=== PATIENT | female | born 1965 | race Caucasian/White ===

== ENCOUNTER 2018-03-31 20:25 | Emergency (ER) | payer OTHER ==
[2018-03-31] MEDS ORDERED: PHENAZOPYRIDINE HCL 200 MG TAB PO ONE (21:17)
[2018-03-31] MEDS ORDERED: CEPHALEXIN 500MG PREPACK#4 BTL TAKEHOME ONE (21:17)
--- NOTE | 2018-03-31 21:19 | EDPHY ---
H & P Stated Complaint: Blood in urine x1 day. Lower abd pain/pressure, polyuria Time Seen by Provider: 03/31/18 21:06 HPI/ROS: CHIEF COMPLAINT: "I think I have a bladder infection" HISTORY OF PRESENT ILLNESS: 52-year-old immunocompetent female arrived this afternoon from [place], in town for [facility] graduation, complaining of suprapubic pressure, increased frequency, hematuria since approximately 4:00 p.m. when her plane landed. No back or flank pain. No nausea or vomiting. No fever or chills. No flu-like symptoms. PRIMARY CARE PROVIDER: REVIEW OF SYSTEMS: A ten point review of systems was performed and is negative with the exception of the items mentioned in the HPI PAST MEDICAL & SURGICAL HISTORY: hysterectomy. Hypothyroid. SOCIAL HISTORY: Nonsmoker. Visiting from [place] [ PHYSICAL EXAM (Prior to examination, patient consented to physical exam, hands were washed and my usual and customary physical exam procedures followed) 1) GENERAL: Well-developed, well-nourished, alert and oriented. Appears to be in no acute distress. 2) HEAD: Normocephalic, atraumatic 3) HEENT: Pupils equal, round, reactive to light bilaterally. Sclera anicteric. 4) NECK: Full range of motion, no meningeal signs. 5) LUNGS: Clear auscultation bilaterally, no wheezes, no rhonchi, no retractions. 6) HEART: Regular rate and rhythm, no murmur, no heave, no gallop. 7) ABDOMEN: No guarding, no rebound, no focal tenderness, negative McBurney's, negative Morataya's, negative Rovsing's, negative peritoneal sign, 8) MUSCULOSKELETAL: Moving all extremities, no focal areas of tenderness, no obvious trauma. No peripheral edema or discoloration. 9) BACK: No CVA tenderness 10) SKIN: No rash, no petechiae. 11) Psychiatric: Patient is oriented X 3, there is no agitation. DIFFERENTIAL DIAGNOSIS: In no particular order including but not limited to cystitis, pyelonephritis, diverticulitis - Personal History LMP (Females 10-55): Hysterectomy Current Tetanus/Diphtheria Vaccine: Unsure Current Tetanus Diphtheria and Acellular Pertussis (TDAP): Unsure - Medical/Surgical History Hx Asthma: No Hx Chronic Respiratory Disease: No Hx Diabetes: No Hx Cardiac Disease: No Hx Renal Disease: No Hx Cirrhosis: No Hx Alcoholism: No Hx HIV/AIDS: No Hx Splenectomy or Spleen Trauma: No Other PMH: Hysterectomy, pitutary tumor removal, hypothyroid, RTK, Lap-charan, Diabetes Inciptus. - Social History Smoking Status: Former smoker Constitutional: Initial Vital Signs Temperature (C) 36.7 C 03/31/18 20:34 Heart Rate 78 03/31/18 20:34 Respiratory Rate 16 03/31/18 20:34 Blood Pressure 137/87 H 03/31/18 20:34 O2 Sat (%) 97 03/31/18 20:34 O2 Delivery Mode Room Air Allergies/Adverse Reactions: codeine Allergy (Verified 03/31/18 20:40) erythromycin base Allergy (Verified 03/31/18 20:40) Home Medications: Medication Instructions Recorded Cephalexin [Keflex] 500 mg PO TID 7 Days cap 03/31/18 Ddavp 03/31/18 Levothyroxine 03/31/18 Phenazopyridine HCl [Pyridium] 200 mg PO PC #10 tab 03/31/18 Medical Decision Making ED Course/Re-evaluation: I feel the patient can be treated on an outpatient basis as I believe her to be a competent decision-maker, shows no signs of urosepsis, afebrile, no comorbid medical conditions. Nonetheless, I have provided acute urinary tract infection red flag signs and symptoms precautions, and reasons to return to the emergency department. She feels comfortable being discharged. Started on Keflex and Pyridium. Usual and customary discharge precautions instructions provided. Care of patient under supervision of secondary supervising physician Dr Rhoades. - Data Points Laboratory Results: 03/31/18 20:52 Urine Color RED Urine Appearance CLEAR Urine pH 6.0 (5.0-7.5) Ur Specific [place] 1.004 (1.002-1.030) Urine Protein 1+ H (NEGATIVE) Urine Ketones NEGATIVE (NEGATIVE) Urine Blood 3+ H (NEGATIVE) Urine Nitrate NEGATIVE (NEGATIVE) Urine Bilirubin NEGATIVE (NEGATIVE) Urine Urobilinogen NEGATIVE EU EU (0.2-1.0) Ur Leukocyte Esterase 2+ H (NEGATIVE) Urine RBC 5-10 /hpf H /hpf (0-3) Urine WBC 25-50 /hpf H /hpf (0-3) Ur Epithelial Cells TRACE /lpf /lpf (NONE-1+) Urine Bacteria 3+ /hpf H /hpf (NONE SEEN) Urine Glucose NEGATIVE (NEGATIVE) Departure - Departure Disposition: Home, Routine, Self-Care Clinical Impression: Urinary tract infection Qualifiers: Urinary tract infection type: acute cystitis Hematuria presence: with hematuria Qualified Code(s): N30.01 - Acute cystitis with hematuria Condition: Good Instructions: Urinary Tract Infection in Women (ED) Additional Instructions: Return to the ER immediately if you experience fevers/chills, flu like symptoms , inability to tolerate oral intake, nausea or vomiting, or any other symptoms that concern you. Please ensure your staying adequately hydrated with non alcoholic drinks Referrals: Follow-up, with your primary doctor when you return to [place] [Other] - As per Instructions Prescriptions: Cephalexin [Keflex] 500 mg PO TID 7 Days cap Phenazopyridine HCl [Pyridium] 200 mg PO PC #10 tab
[2018-03-31 21:36] VITALS: BP 148/77
== END 2018-03-31 21:36 | disposition home or self-care (01) ==
DX: N30.01 Acute cystitis with hematuria (principal); B96.20 Unspecified Escherichia coli [E. coli] as the cause of diseases classified elsewhere; Z87.891 Personal history of nicotine dependence; Z90.710 Acquired absence of both cervix and uterus